=== PATIENT | female | born 1990 | race Caucasian/White ===

== ENCOUNTER 2016-08-29 18:39 | Observation (INO) | payer OTHER ==
[~2016-08-29] VITALS: Ht 157.5 cm; Wt 59.0 kg
[~2016-08-29 18:39] MED LIST: FERROUS SULFAT325 MG PO; IRON325 MG PO; MOTRIN800 MG PO; PRENATAL1 TAB PO
[2016-08-29] MEDS ORDERED: MORPHINE SULFATE 10 MG/ML SYR IM SCH (19:45)
[2016-08-29] MEDS ORDERED: MORPHINE SULFATE 10 MG/ML SYR ONE (19:52)
[2016-08-29 20:18] VITALS: BP 99/59
[2016-08-30] MEDS ORDERED: NATURAL IRON65 MG PO (21:01)
== END 2016-08-29 21:05 | disposition home or self-care (01) ==
LOC: MLD 18:39
PROVIDERS: ADMIT Obstetrics & Gynecology; ATTEND Obstetrics & Gynecology
DX: O26.893 Other specified pregnancy related conditions, third trimester (principal); R10.9 Unspecified abdominal pain; Z3A.32 32 weeks gestation of pregnancy
CPT/HCPCS: 81000; 96372; G0378; J2270

== ENCOUNTER 2016-08-30 20:11 | Inpatient (IN) | payer OTHER ==
[~2016-08-30] VITALS: Ht 157.5 cm; Wt 59.0 kg
[~2016-08-30 20:11] MED LIST changes: -FERROUS SULFAT325 MG PO; -IRON325 MG PO; -MOTRIN800 MG PO; +PREN-234 PO; -PRENATAL1 TAB PO
[2016-08-30] MEDS ORDERED: IRON65TA11 PO (21:01)
[2016-08-30] MEDS ORDERED: LACTATED RINGERS 1,000 ML IV SCH (21:01)
[2016-08-30] MEDS ORDERED: OXYTOCIN 20 UNITS/LR PREMIX 1,000 ML IV PRN (21:05)
[2016-08-30] MEDS ORDERED: PROMETHAZINE 25 MG/ML VIAL IVP PRN (21:05)
[2016-08-30] MEDS ORDERED: CARBOPROST 250 MCG/ML AMP IM PRN (21:05)
[2016-08-30] MEDS ORDERED: METHYLERGONOVINE 0.2 MG/ML AMP IM PRN (21:05)
[2016-08-30] MEDS ORDERED: NALBUPHINE HYDROCHLORIDE 10 MG/ML VIAL IVP PRN (21:05)
[2016-08-30] MEDS ORDERED: OXYTOCIN 10 UNITS/ML VIAL IM SCH (21:05)
[2016-08-30 21:13] VITALS: BP 101/58
[2016-08-30 21:35] LABS: MEAN CORPUSCULAR HEMOGLOBIN 19 pg (27-31); MEAN CORPUSCULAR HGB CONC 30 g/dL (33-37); MEAN CORPUSCULAR VOLUME 65 fL (80-94); PLATELET COUNT (AUTO) 109 K/uL (140-450); RED BLOOD CELL COUNT(AUTO) 4.14 MIL/uL (4.20-5.40); RED CELL DISTRIBUTION WIDTH 13.8 % (11.6-13.7); WHITE BLOOD COUNT (AUTO) 8.7 K/uL (4.8-10.8)
[2016-08-30 21:40] LABS: BILIRUBIN,URINE NEGATIVE (NEGATIVE); BLOOD, URINE NEGATIVE (NEGATIVE); COLOR,URINE YELLOW (YELLOW); LEUKOCYTE ESTERASE ,URINE TRACE (NEGATIVE); NITRITE, URINE NEGATIVE (NEGATIVE); PROTEIN,URINE NEGATIVE (NEGATIVE); UGLUCOSE NEGATIVE (NEGATIVE)
[2016-08-30 21:42] LABS: APPEARANCE,URINE SLIGHTLY HAZY (CLEAR)
[2016-08-30 21:45] LABS: BACTERIA,URINE 1+ /HPF (None Seen); RBC,URINE 0-3 /HPF (0-5); SQUAMOUS EPITHELIAL CELL,UR 15-30 /LPF (0-3 (FEW)); WBC,URINE 20-40 /HPF (0-5)
[2016-08-30 22:12] LABS: BAND % (MANUAL) 7 % (0-8); HYPOCHROMASIA 2+; LYMPHOCYTES % (MANUAL) 23 % (20-46); MONOCYTES % (MANUAL) 5 % (5-12); NEUTROPHILS % (MANUAL) 65 (43-65); PLATELET ESTIMATE DECREASED; POIKILOCYTOSIS 1+
[2016-08-30] MEDS ORDERED: OXYTOCIN 20 UNITS/LR PREMIX 1,000 ML IV ONE (22:30)
[2016-08-31] MEDS ORDERED: NALBUPHINE HYDROCHLORIDE 10 MG/ML VIAL ONE ×3 (06:15→12:45)
--- NOTE | 2016-08-31 08:45 | NUR ---
PATIENT HAS BEEN SCREENED AND CATEGORIZED LOW NUTRITION RISK. PATIENT WILL BE SEEN WITHIN 7 DAYS OF ADMISSION. 09/06/[address]
[2016-08-31] MEDS ORDERED: MORPHINE SULFATE 10 MG/ML SYR ONE (10:00)
[2016-08-31] MEDS ORDERED: PROMETHAZINE 25 MG/ML VIAL ONE (10:01)
[2016-08-31] MEDS ORDERED: OXYTOCIN 10 UNITS/ML VIAL ONE (10:32)
[2016-08-31] MEDS ORDERED: TEMAZEPAM 15 MG CAP PO PRN (20:00)
[2016-08-31] MEDS ORDERED: METHYLERGONOVINE 0.2 MG/ML AMP IM PRN (20:00)
[2016-08-31] MEDS ORDERED: oxyCODONE/APAP 5/325 MG 1 TAB TAB PO PRN (20:00)
[2016-08-31] MEDS ORDERED: WITCH HAZEL 40 PAD PACKAGE TP PRN (20:00)
[2016-08-31] MEDS ORDERED: BENZOCAINE/MENTHOL 20%-0.5% 60 GM CAN TP PRN (20:00)
[2016-08-31] MEDS ORDERED: MEASLES, MUMPS, AND RUBELLA 1 VIAL SQVAC PRN (20:00)
[2016-08-31] MEDS ORDERED: HYDROcodone/APAP 5/325 MG 1 TAB TAB PO PRN (20:00)
[2016-08-31] MEDS: IBUPROFEN 800 MG TAB PO PRN (20:44)
[2016-08-31] MEDS ORDERED: DOCUSATE SOD/SENNA 50/8.6 MG 1 TAB PO SCH (21:00)
[2016-08-31] MEDS ORDERED: INFLUENZA VIRUS VACCINE QUAD 0.5 ML SYR IMVAC SCH (23:15)
[2016-09-01 06:21] LABS: HEMATOCRIT 23.2 % (36-48); HEMOGLOBIN 7.2 g/dL (12.0-16.0)
[2016-09-01] MEDS: IBUPROFEN 800 MG TAB PO PRN (13:57)
[2016-09-01] MEDS ORDERED: DOCUSATE SOD/SENNA 50/8.6 MG 1 TAB PO SCH (21:00)
== END 2016-09-02 23:59 | disposition home or self-care (01) | DRG 560 ==
LOC: MFCC 20:11 → OBSVTOIN 20:11 → MFCC 08-31 17:04
PROVIDERS: ADMIT Obstetrics & Gynecology; ATTEND Obstetrics & Gynecology
PROC: 10E0XZZ Delivery of Products of Conception, External Approach (ICD-10-PCS; principal; 2016-08-31)
PROC: 10907ZC Drainage of Amniotic Fluid, Therapeutic from Products of Conception, Via Natural or Artificial Opening (ICD-10-PCS; 2016-08-31)
PROC: 3E0234Z Introduction of Serum, Toxoid and Vaccine into Muscle, Percutaneous Approach (ICD-10-PCS; 2016-08-31)
DX: O69.1XX0 Labor and delivery complicated by cord around neck, with compression, not applicable or unspecified (principal); O70.0 First degree perineal laceration during delivery; Z3A.38 38 weeks gestation of pregnancy; Z37.0 Single live birth; Z23 Encounter for immunization
CPT/HCPCS: 36415; 59409; 81001; 85018; 85025; 86592; 86886; 86900; 86901; 87086; 87186; 90658; 90707; 90715; J2270; J2300; J2550; J2590; J7120